=== PATIENT | male | born 1990 | race Caucasian/White ===

== ENCOUNTER 2019-01-14 20:58 | Emergency (ER) | payer MEDICAID, SELFPAY ==
[2019-01-14 21:00] VITALS: BP 126/68; PULSE 84; RESP 18; TEMP 36.7; O2SAT 94; BMI 31.1
[2019-01-14 21:48] VITALS: RESP 17; O2SAT 98
[2019-01-14 21:56] LABS: Absolute Lymphocyte Count 2.06 X10^3/ul (0.83-4.51); Absolute Neutrophil Count 4.2 X10^3/uL (2.0-7.7); Basophil# 0.04 X10^3/uL; Basophil% 0.5 % (0-1); Eosinophil# 0.31 X10^3/uL; Eosinophils% 4.2 % (0-5); Hematocrit 43.2 % (40-54); Hemoglobin 15.5 g/dl (13.0-16.5); Lymphocyte # 2.06 X10^3/ul (4.0); Mean Corp Hgb Conc 35.9 g/gl (32-36); Mean Corpuscular Hgb 30.7 pg (27.0-32.0); Mean Corpuscular Volume 85.5 fL (80-94); Mean Platelet Vol. 9.6 fl (6.2-12.0); Monocyte# 0.73 X10^3/uL; Monocyte% 9.9 % (0-10); Neutrophil # 4.19 X10^3/uL (2.7-7.7); Neutrophil % 57.1 % (47-70); Platelet Count 202 K/mm3 (150-450); RBC Distribution Width CV 12.6 % (11.6-14.6); RBC Distribution Width SD 38.6 fl (35.1-43.9); Red Blood Count 5.05 M/mm3 (4.6-6.2); White Blood Count 7.4 K/mm3 (4.4-11.0)
[2019-01-14 21:57] LABS: Anion Gap 5 (5-15); BUN 15 mg/dL (7-18); BUN/Creat Ratio 14.4 RATIO (10-20); Calcium,Total 8.6 mg/dL (8.5-10.1); Chloride 110 mmol/L (98-107); Creatinine, Serum 1.04 mg/dL (0.70-1.30); EST Glomerular Filtration Rate 91 mL/min (>60); Est Glom Filt Rate - Afr Amer 110 mL/min (>60); Estimated Creatinine Clearance 111.14 ml/min; Glucose 104 mg/dL (74-106); Sodium Level 141 mmol/L (136-145)
[2019-01-14 22:00] VITALS: RESP 16; O2SAT 98
[2019-01-14 22:01] LABS: Amphetamine Urine VISTA NEGATIVE (<1000 ng/mL); Barbiturate Urine VISTA NEGATIVE (< 200 ng/mL); Benzodiazepine Urine VISTA NEGATIVE (< 200 ng/mL); Cocaine Urine VISTA NEGATIVE (< 300 ng/mL); Ecstacy Urine VISTA NEGATIVE (< 500 ng/mL); Methadone Urine VISTA NEGATIVE (< 300 ng/mL); PCP Urine VISTA NEGATIVE (< 25 ng/mL); THC Urine VISTA NEGATIVE (< 50 ng/mL); Vista UDS pH Range 5
[2019-01-14 22:04] LABS: POSITIVE COUNT NO; POSITIVE DIFFERENTIAL NO; POSITIVE MORPHOLOGY NO
[2019-01-14 22:27] LABS: Red Blood Cells-Urine 0 SEEN /hpf (0-5); Squamous Epithelial Cells - UA 0 SEEN /hpf (0-5)
[2019-01-14 22:31] LABS: Color, Urine Yellow (Yellow); Glucose, Dipstick Normal (Normal); Ketone-Dipstick 5 mg/dl (Negative); Leukocyte Esterase-Dipstick Negative /ul (Negative); Nitrite-Dipstick Negative (Negative); Occult Blood-Urine Negative /ul (Negative); Protein-Dipstick Negative (Negative); Specific Gravity, Urine 1.025 (1.002-1.030); Urine Bilirubin Dipstick Negative (Negative); Urine Clarity Clear (Clear); Urine Urobilinogen Normal (Normal)
[2019-01-14 22:38] LABS: Bacteria RARE /hpf (None Seen); Mucous, Urine RARE /hpf (<or=2+); White Blood Cells 0-5 SEEN /hpf (0-5)
[2019-01-14 23:00] VITALS: RESP 16; O2SAT 98
--- NOTE | 2019-01-14 23:03 | NURSING ---
CRISIS WAS INFORMED OF PATIENT. SARAI NEEDS OT GO TO THE [facility] FIRST AND WILL BE BACK TO SEE PATIENT
--- NOTE | 2019-01-14 23:04 | ED.VISSUMM ---
- ER Visit Summary Date of Service: 01/14/19 Chief Complaint: Schizophrenia History of Present Illness: The patient is a 28 M 2 schizophrenia. Last shot was December 06. Patient is currently staying at [facility]. And he got thrown out of the [facility] tonight for behavioral issues. Patient then made threats of being suicidal and homicidal. Was brought up here by police. He is currently homeless and says he has no place to go if he can stay at [facility]. Physical Examination: Vital signs are stable afebrile Young male no acute distress. Currently he is calm and collected lying in bed. He is not acting out. He is not screaming. He is cooperative. HEENT exam no signs of trauma. Moist his membranes. No facial droop. Pupils round reactive light. Neck nontender. No trauma. Lungs clear to auscultation bilaterally. Heart regular rate and rhythm no murmur. Abdomen soft nontender. Patient moving all 4 extremities. Neurovascular intact. There is no track jovel or signs of trauma. No old scars. Back nontender. Neurologically is awake and alert. There are no focal motor deficits. I do not smell alcohol and there is no signs of a toxidrome. Test Results: ED mental health screening labs are unremarkable. CBC normal. Chemistries unremarkable. Tox screen negative. Alcohol negative. Emergency Department Course and Treatment: Patient will be evaluated by crisis. Currently this seems more like a social issue since he is homeless. Treatment Plan: Disposition: [] Impression: History of schizophrenia Suicidal homicidal threats This note was generated with [employer] dictation software. It may contain incorrect words, spelling, and punctuation that were not noted in review of the chart prior to signing ED Disposition - Plan for ED Patient: Referrals: Care Physician,No Primary [Primary Care Provider] -
[2019-01-15] VITALS (20 sets, daily range): BP systolic 97–120; BP diastolic 46–80; PULSE 52–69; RESP 14–18; O2SAT 96–100
[2019-01-15] MEDS: Famotidine 20 MG Tablet 40 MG PO (00:13)
--- NOTE | 2019-01-15 07:41 | ED.RN ---
0700: pt sleeping without distress. breakfast ordered
--- NOTE | 2019-01-15 10:56 | ED.RN ---
Sleeping. No distress noted.
--- NOTE | 2019-01-15 14:40 | EKG12_ITS ---
Test Reason : [facility] [place] Pressure : / mmHG Vent. Rate : 053 BPM Atrial Rate : 053 BPM P-R Int : 126 ms QRS Dur : 094 ms QT Int : 430 ms P-R-T Axes : 060 013 001 degrees QTc Int : 403 ms Sinus bradycardia with sinus arrhythmia Otherwise normal ECG Confirmed by SABINA JACKSON, NANETTE ([id number]), editor & co founder DINORA VALLE ([id number]) on 01/18/2019 2:11:06 PM Referred By: Confirmed By:NANETTE MUHAMMAD MD
[2019-01-15 15:13] LABS: AST(SGOT) 29 U/L (15-37); Alanine Aminotransfer ALT/SGPT 49 U/L (16-61); Alkaline Phosphatase 106 U/L (45-117); Bilirubin, Direct 0.05 mg/dL (0.00-0.30); Globulin 3.3 g/dL (2.2-4.2); Protein, Total 7.3 g/dL (6.4-8.2)
[2019-01-16] VITALS (12 sets, daily range): BP systolic 109–118; BP diastolic 62–69; PULSE 52–62; RESP 14–18; TEMP 36.5; O2SAT 93–98
[2019-01-16] MEDS: Paroxetine 20 MG Tablet PO (10:27)
== END 2019-01-16 17:27 ==
PROVIDERS: Emergency Provider Emergency Medicine
DX: F20.9 Schizophrenia, unspecified (principal); R45.850 Homicidal ideations; R45.851 Suicidal ideations; R19.7 Diarrhea, unspecified; Z59.0 Homelessness; Z79.899 Other long term (current) drug therapy; Z72.0 Tobacco use
CPT/HCPCS: 80048; 80076; 80307; 80320; 81001; 85025; 93005; 99284; G0480